=== PATIENT | female | born 1945 | race Caucasian/White ===

== ENCOUNTER → 2016-12-22 | Outpatient (CLI) | payer OTHER | LOC: FIMAGING 09:00 | PROVIDERS: ATTEND Physician Assistant | DX: K80.20 Calculus of gallbladder without cholecystitis without obstruction (principal) ==

== ENCOUNTER → 2018-05-10 | Outpatient (CLI) | payer OTHER | LOC: FIMAGING 16:31 | PROVIDERS: ATTEND Physician Assistant | DX: K80.20 Calculus of gallbladder without cholecystitis without obstruction (principal) ==

== ENCOUNTER → 2018-08-14 | Outpatient (CLI) | payer OTHER | LOC: FIMAGING 08:14 | PROVIDERS: ATTEND Surgery | DX: K22.6 Gastro-esophageal laceration-hemorrhage syndrome (principal); K44.9 Diaphragmatic hernia without obstruction or gangrene ==

== ENCOUNTER 2018-08-17 07:06 | Inpatient (IN) | payer OTHER ==
[2018-08-17] MEDS ORDERED: LR 1,000 ML IV ONE (07:21)
[2018-08-17] MEDS ORDERED: VANCOMYCIN PHARMACY TO DOSE MISC ONE (07:22)
--- NOTE | 2018-08-17 07:26 | PDANEPAE ---
ANE History of Present Illness Laparoscopic cholecystectomy ANE Past Medical History - Cardiovascular History Hx Hypertension: No Hx Arrhythmias: No Hx Chest Pain: No Hx Coronary Artery / Peripheral Vascular Disease: No Hx CHF / Valvular Disease: No Hx Palpitations: No - Pulmonary History Hx COPD: No Hx Asthma/Reactive Airway Disease: No Hx Recent Upper Respiratory Infection: No Hx Oxygen in Use at Home: No Hx Sleep Apnea: No Sleep Apnea Screening Result - Last Documented: Negative - Neurologic History Hx Cerebrovascular Accident: No Hx Seizures: No Hx Dementia: No - Endocrine History Hx Diabetes: No Hypothyroid: No Hyperthyroid: No Obesity: mild - Renal History Hx Renal Disorders: No - Liver History Hx Hepatic Disorders: No Hepatic History Comment: cholelithiasis - Neurological & Psychiatric Hx Hx Neurological and Psychiatric Disorders: No - Cancer History Hx Cancer: No - Congenital Disorder History Hx Congenital Disorders: No - GI History GERD: severe Hx Gastrointestinal Disorders: Yes Gastrointestinal History Comment: GERD. hiatal hernia - Other Health History Other Health History: bilateral hearing aids - Chronic Pain History Chronic Pain: Yes (gallbladder) - Surgical History Prior Surgeries: c-sections x2. lumbar fusion L5-S1, 20 years ago ANE Review of Systems Review of Systems: - Exercise capacity METS (RN): 4 METS ANE Patient History - Allergies Allergies/Adverse Reactions: Penicillins Allergy (Verified 08/16/18 17:53) full body rash - Home Medications Home Medications: Omeprazole 08/16/18 [Last Taken 08/16/18] - Anes Hx Anes Hx: no prior problems - Smoking Hx Smoking Status: Never smoked - Alcohol Use Alcohol Use: Rarely - Family Anes Hx Family Anes Hx: none Family Hx Anesthesia Complications: none ANE Labs/Vital Signs - Labs Result Diagrams: 08/17/18 07:28 08/17/18 07:23 - Vital Signs Vital Signs: reviewed preoperatively; see RN documention for details Height: 151.77 cm Weight: 55.338 kg ANE Physical Exam - Airway Neck exam: FROM (some neck pain with lateral rotation) Mallampati Score: Class 3 Mouth exam: normal dental/mouth exam - Pulmonary Pulmonary: clear to auscultation - Cardiovascular Cardiovascular: regular rate and rhythym - ASA Status ASA Status: II ANE Anesthesia Plan Anesthesia Plan: general endotracheal anesthesia
--- NOTE | 2018-08-17 07:29 | PDHPUP ---
History & Physical Update H&P update statement: This history and physical update is based on an assessment of the patient which was completed after admission or registration (within 24 hours), but prior to the surgery/procedure. H&P update: H&P reviewed & patient examined, no change in patient's condition since H&P completed
[2018-08-17] MEDS ORDERED: VANCOMYCIN HCL/NORMAL SALINE 250 ML IV ONE (07:30)
[2018-08-17] MEDS ORDERED: BUPIVACAINE 0.5% 30 ML SDV ONE ×2 (07:55→12:00)
[2018-08-17] MEDS ORDERED: HEPARIN 1000 UNIT/1 ML MDV ONE (07:55)
[2018-08-17] MEDS ORDERED: ceFAZolin 1 GM/5 ML SYR ONE (07:56)
[2018-08-17] MEDS ORDERED: VANCOMYCIN 1 GM in NS 250 ML IV ONE (08:00)
[2018-08-17 08:17] LABS: PLATELET COUNT 297 10^3/uL (150-400)
[2018-08-17] MEDS ORDERED: MIDAZOLAM 2 MG/2 ML VIAL IVP ONE (08:51)
[2018-08-17] MEDS ORDERED: fentaNYL 250 MCG/5 ML INJ ONE (08:59)
[2018-08-17] MEDS ORDERED: PROPOFOL 200 MG/20 ML VIAL ONE (08:59)
[2018-08-17] MEDS ORDERED: DEXAMETHASONE 4 MG/ML VIAL ONE (08:59)
[2018-08-17] MEDS ORDERED: ROCURONIUM 50 MG/5 ML VIAL ONE ×2 (08:59→11:19)
[2018-08-17] MEDS ORDERED: MIDAZOLAM 2 MG/2 ML VIAL ONE (09:39)
[2018-08-17] MEDS ORDERED: PHENYLEPHRINE HCL 100 MCG/ML SYR ONE (10:12)
[2018-08-17] MEDS ORDERED: LABETALOL HCL 5 MG/ML 20 ML MDV ONE (10:33)
[2018-08-17] MEDS ORDERED: fentaNYL 100 MCG/2 ML INJ ONE ×2 (11:10→12:44)
[2018-08-17] MEDS ORDERED: ONDANSETRON 4 MG/2 ML VIAL ONE ×2 (11:23→12:46)
[2018-08-17] MEDS ORDERED: fentaNYL 100 MCG/2 ML INJ IVP PRN (11:43)
[2018-08-17] MEDS ORDERED: NALOXONE HCL 0.4 MG/ML INJ IVP PRN (11:43)
[2018-08-17] MEDS ORDERED: HYDROmorphONE/DILAUDID 2 MG/ML INJ IVP PRN (11:43)
[2018-08-17] MEDS ORDERED: ONDANSETRON 4 MG/2 ML VIAL IVP PRN (11:43)
[2018-08-17] MEDS ORDERED: SUGAMMADEX SODIUM 200 MG/2 ML VIAL IVP ONE (11:57)
[2018-08-17] MEDS ORDERED: HYDROmorphONE/DILAUDID 1 MG/ML INJ IVP PRN (12:50)
[2018-08-17] MEDS ORDERED: ACETAMINOPHEN 325 MG TAB PO PRN (12:50)
[2018-08-17] MEDS ORDERED: PROMETHAZINE HCL 25 MG/ML INJ ONE (12:51)
[2018-08-17] MEDS ORDERED: PROMETHAZINE HCL 25 MG/ML INJ IVP PRN (12:53)
--- NOTE | 2018-08-17 12:55 | POSTOPPROG ---
Post Op Note Date of Operation: 08/17/18 Surgeon: Severiano Jones Packer Operator Automatic: Phil Anesthesiologist: Keo Anesthesia: GET(General Endotracheal) Pre-op Diagnosis: Cholelithiasis, hiatal hernia Post-op Diagnosis: same Indication: pain, GERD Procedure: Lap álvaro fundoplication and lap jyoti Findings: Golf ball size stone Inf/Abcess present in the surg proc area at time of surgery?: No Depth: Organ Space EBL: Minimal Specimen(s): Gall bladder
--- NOTE | 2018-08-17 14:09 | POSTANESTH ---
Post Anesthetic Evaluation Cardiovascular Status: Similar to Pre-Op Cond Respiratory Status: Normal, Stable Level of Consciousness/Mental Status: Can Participate in Eval Pain Control: Adequate, Prn Tx Ordered Nausea/Vomiting Control: Adequate, Prn Tx Ordered Complications Possibly Related to Anesthesia: None Noted
[2018-08-17] MEDS: ONDANSETRON DISINTEGRATING 4 MG TAB PO PRN ×2 (15:02→20:35)
[2018-08-17] MEDS: oxyCODONE IR 5 MG TAB PO PRN ×2 (16:57→21:05)
[2018-08-17] MEDS: POTASSIUM Cl (KCl) 10 MEQ in D5W 1/2 NS 1,000 ML IV SCH (19:31)
[2018-08-18] MEDS: ONDANSETRON DISINTEGRATING 4 MG TAB PO PRN ×5 (03:26→20:33)
[2018-08-18] MEDS: oxyCODONE IR 5 MG TAB PO PRN ×5 (03:26→20:33)
[2018-08-18] MEDS: POTASSIUM Cl (KCl) 10 MEQ in D5W 1/2 NS 1,000 ML IV SCH (08:30)
[2018-08-18] MEDS ORDERED: FAMOTIDINE 20 MG TAB PO PRN (09:27)
[2018-08-18] MEDS ORDERED: PANTOPRAZOLE SODIUM 40 MG TAB PO PRN (09:34)
--- NOTE | 2018-08-18 11:48 | SOAPPROG ---
SOAP Progress Note Assessment/Plan: Assessment/plan: 72 y/o F s/p lap jyoti and álvaro fundoplication POD #1 Ok to advance diet to soft. Pt would like to stay one more night for pain control. S: Doing well overall. Biggest complaint is pain. Passing some gas. Tolerating clears. O: Alert Afebrile RRR No increased WOB Abdomen soft, but distended and ttp. Hypoactive bowel sounds. 08/18/18 11:46 Objective: Vital Signs Temp Pulse Resp BP Pulse Ox 36.6 C 64 16 125/68 H 97 08/18/18 11:13 08/18/18 11:13 08/18/18 11:13 08/18/18 11:13 08/18/18 11:13 Laboratory Results 08/17/18 07:28 08/17/18 07:23 08/17/18 08/18/18 08/19/18 05:59 05:59 05:59 Intake Total 1450 Output Total 325 Balance 1125 ICD10 Worksheet Patient Problems: Problems Problem Status Onset Cholelithiasis Acute Hiatal hernia Acute - ICD10 Problem Qualifiers (1) Cholelithiasis (2) Hiatal hernia
--- NOTE | 2018-08-18 14:14 | PDMN ---
Medical Necessity Medical necessity: Change to IP as of 08/18/2018 per PA; los > 2 mn s/p CPT 53051 álvaro fundoplication [place] 33262 lap jyoti with ongoing severe pain (04/25) requiring further monitoring and pain management
--- NOTE | 2018-08-18 16:41 | ASMTCMCOM ---
CM Note CM Note Notes: Pt admitted to hospital for scheduled gallbladder surgery. She lives at home with her , and is otherwise independent. CM available for any changes. DC Plan: Independent Date Signed: 08/18/2018 04:41 PM Electronically Signed By:Amie Brown RN
[2018-08-19] MEDS: oxyCODONE IR 5 MG TAB PO PRN ×2 (06:49→13:12)
[2018-08-19] MEDS: ONDANSETRON DISINTEGRATING 4 MG TAB PO PRN ×2 (06:50→13:12)
[2018-08-19 07:56] VITALS: BP 121/74
--- NOTE | 2018-08-19 12:45 | SOAPPROG ---
SOAP Progress Note Assessment/Plan: Assessment: 72 y/o F s/p lap jyoti and álvaro fundoplication POD #2 Soft diet but some discomfort in esophagus with swallowing Walking laps Provided reassurance Can dc home S: Doing well overall. Pain is controlled. Reports less appetite today O: Alert Sitting up in bed, smiling Afebrile RRR CTAB, No increased WOB Abdomen soft, minimal distension. Incisions cdi. BS present. Plan: 08/19/18 12:44 Objective: Vital Signs Temp Pulse Resp BP Pulse Ox 36.6 C 73 13 121/74 H 94 08/19/18 07:55 08/19/18 07:55 08/19/18 07:55 08/19/18 07:55 08/19/18 07:55 Laboratory Results 08/17/18 07:28 08/17/18 07:23 08/18/18 08/19/18 08/20/18 05:59 05:59 04:59 Intake Total 1450 1550 Output Total 325 1000 Balance 1125 550 ICD10 Worksheet Patient Problems: Problems Problem Status Onset Cholelithiasis Acute Hiatal hernia Acute
--- NOTE | 2018-08-22 07:19 | GOP ---
DATE OF OPERATION: 08/17/2018 SURGEON: Severiano Jones MD RESEARCH CLERK: Shonda Villarreal NP PREOPERATIVE DIAGNOSIS: Symptomatic cholelithiasis, chronic cholecystitis, and chronic gastroesophag eal reflux disease. POSTOPERATIVE DIAGNOSIS: Symptomatic cholelithiasis, chronic cholecystitis, and chronic gastroesopha geal reflux disease. PROCEDURE PERFORMED: Laparoscopic cholecystectomy and laparoscopic Rebekah fundoplication. FINDINGS: The patient was found to have small to moderate hiatal hernia. She had a markedly inflame d and thickened gallbladder with very large gallstones, almost the size of the golf balls. ESTIMATED BLOOD LOSS: Negligible. DESCRIPTION OF PROCEDURE: The patient was taken to the operating room where she received satisfactor y general endotracheal anesthesia. She was placed in the supine position with split leg stirrups, wi th the arms extended. She was prepped and draped in the usual sterile fashion. Epigastric incision was made. A Veress needle inserted. Pneumoperitoneum was established. A trocar was introduced. La paroscope was introduced. Good visualization was obtained. Four of the trocars were placed in the up per abdomen under direct vision. A left lateral segment of the liver was elevated up with self-retai isaura retractors. The hiatus was dissected free with the Harmonic Scalpel. The hiatal hernia was dis sected free and reduced. Both noa were well visualized and exposed, and the esophagus was exposed f or several centimeters. A retroesophageal tunnel was created. The fundus of the stomach was mobiliz ed and short gastrics were divided with the Harmonic Scalpel. The noa was closed with interrupted 0 Ethibond sutures over a 52 bougie dilator. The fundus was passed behind the esophagus, and then an anterior Rebekah fundoplication wrap was created with interrupted 0 Ethibond sutures, securing the ant erior wall of the stomach, to the anterior wall of the esophagus, and then through the fundoplication wrap. This was done with 3 separate sutures. Hemostasis was assured. Trocars were slightly reposi tioned, and attention was turned to the gallbladder. Adhesions were taken down. The gallbladder was totally exposed down to the cystic triangle. The gallbladder was quite full and thickened. The cys tic triangle was carefully dissected free. The cystic artery and cystic duct were dissected free. T he gallbladder was freed up from the inferior aspect of the hepatic fossa. A good clear view was est ablished. The cystic artery and cystic duct were multiply hemoclipped and divided with care to avoid injury to the common duct which was clearly visualized. The peritoneum of the gallbladder was incis ed and the gallbladder was dissected free from the bed of the hepatic fossa, and extracted through th e upper midline port sites. Hemostasis was assured. The wound was irrigated. Trocars were removed under direct vision. Trocar sites were closed with 0 Vicryl for the fascia, 4-0 Monocryl subcuticula r stitch for the skin. All layers infiltrated with 0.5% Marcaine. COMPLICATIONS: No complications. Taken to the recovery room in good condition. /[id number]/MODL
== END 2018-08-19 13:54 | disposition home or self-care (01) | DRG 941 ==
LOC: F3E 07:06 → OBSVTOIN 08-18 14:07
PROVIDERS: ADMIT Surgery; ATTEND Surgery
DX: G89.18 Other acute postprocedural pain (principal); K80.20 Calculus of gallbladder without cholecystitis without obstruction; K44.9 Diaphragmatic hernia without obstruction or gangrene; K21.9 Gastro-esophageal reflux disease without esophagitis; Z23 Encounter for immunization
CPT/HCPCS: G0008; J1100; J1170; J2250; J2370; J2405; J2550; J2704; J3010; J3370; J3480

== ENCOUNTER → 2018-09-01 | Outpatient (CLI) | payer OTHER | LOC: FIMAGING 10:51 | PROVIDERS: ATTEND Surgery | DX: K22.4 Dyskinesia of esophagus (principal); Z90.49 Acquired absence of other specified parts of digestive tract ==